=== PATIENT | male | born 1990 | race Two or more races ===

== ENCOUNTER 2017-12-16 15:11 | Emergency (ER) | payer SELFPAY ==
[~2017-12-16] VITALS: Ht 182.9 cm; Wt 78.5 kg
[2017-12-16 15:33] VITALS: BP 126/78
--- NOTE | 2017-12-16 16:29 | RAD ---
Left RIBS with chest, 3 views, 12/16/2017: HISTORY: Injury, pain There is a cortical discontinuity along the lateral margin of the seventh rib compatible with a nondisplaced fracture. No other left rib abnormality is detected. There is no evidence of underlying pneumothorax, hemothorax or pulmonary infiltrate. The heart size is normal. IMPRESSION: Left seventh rib fracture. Electronically signed by: Tyson Lama MD (12/16/2017 4:25 PM) [facility]
[2017-12-16] MEDS ORDERED: HYDR-971 PO (16:33)
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
[2017-12-16] MEDS ORDERED: HYDROcodone/APAP 5/325MG 1 TAB TABLET PO ONE (16:45)
== END 2017-12-16 16:51 | disposition home or self-care (01) ==
LOC: ER 15:11
DX: S22.32XA Fracture of one rib, left side, initial encounter for closed fracture (principal); R07.81 Pleurodynia; W22.09XA Striking against other stationary object, initial encounter; Y93.89 Activity, other specified; Y92.89 Other specified places as the place of occurrence of the external cause; Y99.8 Other external cause status
CPT/HCPCS: 71101; 99284